=== PATIENT | male | born 1945 | race Caucasian/White ===

== ENCOUNTER 2018-03-19 09:17 | Day surgery (SDC) ==
[2018-03-19] MEDS: BETADINE OPTH PREP OP PRN ×2 (10:20→11:12)
[2018-03-19] MEDS: TETRACAINE 0.5% UNIT-DOSE OP PRN ×2 (10:20→11:10)
[2018-03-19] MEDS: CYCLOGYL 2% OPTH OP PRN ×3 (10:21→10:31)
[2018-03-19] MEDS ORDERED: LIDOCAINE 1%/PHENYLEPHRINE 1.5% BSS (SURGERY) INTRAOCULA ONE (10:31)
[2018-03-19] MEDS ORDERED: BSS WITH EPINEPHRINE OP ONE (10:31)
[2018-03-19] MEDS ORDERED: BRIMONIDINE TARTRATE 0.2% OPTH SOL OP PRN (10:31)
[2018-03-19] MEDS ORDERED: DEX-MOXI-KETOR OPTH INJ 1/0.5/0.4 MG/ML IO ONE (10:31)
[2018-03-19] MEDS ORDERED: LIDOCAINE 1% 20 ML MDV ID STA (10:31)
[2018-03-19] MEDS ORDERED: ZOFRAN 4 MG/2 ML IVP ONE (10:31)
[2018-03-19] MEDS ORDERED: VERSED ONE (11:06)
[2018-03-19] MEDS ORDERED: SUBLIMAZE ONE (11:06)
[2018-03-21 11:47] VITALS: TEMP 98.6
[2018-03-21 11:48] VITALS: BP 112/67
== END 2018-03-19 11:50 | disposition home or self-care (01) ==
LOC: SURG 09:17
PROVIDERS: ATTEND Ophthalmology
DX: H25.812 Combined forms of age-related cataract, left eye (principal)

== ENCOUNTER 2018-06-04 08:59 | Day surgery (SDC) | payer OTHER ==
[2018-06-04] MEDS: TETRACAINE 0.5% UNIT-DOSE OP PRN ×2 (10:50→11:43)
[2018-06-04] MEDS: BETADINE OPTH PREP OP PRN ×2 (10:50→11:43)
[2018-06-04] MEDS: CYCLOGYL 2% OPTH OP PRN ×3 (10:51→11:01)
[2018-06-04] MEDS ORDERED: ZOFRAN 4 MG/2 ML IVP ONE (11:03)
[2018-06-04] MEDS ORDERED: BRIMONIDINE TARTRATE 0.2% OPTH SOL OP PRN (11:03)
[2018-06-04] MEDS ORDERED: LIDOCAINE 1% 20 ML MDV ID STA (11:03)
[2018-06-04 11:06] VITALS: TEMP 97.5
[2018-06-04] MEDS: BSS WITH EPINEPHRINE OP ONE ×2 (11:52→12:00)
[2018-06-04] MEDS: DEX-MOXI-KETOR OPTH INJ 1/0.5/0.4 MG/ML IO ONE ×2 (11:52→12:00)
[2018-06-04] MEDS: LIDOCAINE 1%/PHENYLEPHRINE 1.5% BSS (SURGERY) INTRAOCULA ONE ×2 (11:52→12:00)
[2018-06-04] MEDS ORDERED: DIPRIVAN 20 ML VIAL IVP ONE (11:53)
[2018-06-04] MEDS ORDERED: ZOFRAN 4 MG/2 ML ONE (11:53)
[2018-06-04 16:19] VITALS: BP 121/56
== END 2018-06-04 12:40 | disposition home or self-care (01) ==
LOC: SURG 08:59
PROVIDERS: ATTEND Ophthalmology
DX: H25.811 Combined forms of age-related cataract, right eye (principal)